=== PATIENT | male | born 1985 | race American Indian/Alaskan Native ===

== ENCOUNTER 2017-07-31 09:49 | Emergency (ER) | payer OTHER ==
[2017-07-31 10:31] VITALS: BP 123/86
--- NOTE | 2017-07-31 10:53 | Emergency Department Report ---
Chief Complaint: Headache Stated Complaint: MIGRANE Time Seen by Provider: 07/31/17 10:41 - HPI History of Present Illness: Patient is a 32-year-old male who states that for the past several days approximately 3-4 he has been having headaches that are left-sided only. Patient denies neck stiffness or fever. He has had nausea vomiting and mild light sensitivity. Patient states he thinks he has migraines. The patient has not been formally diagnosed with migraines. Patient denies trauma. Patient denies cough cold congestion or sinus issues. - Exam Vital Signs: Vital Signs 07/31/17 10:29 Temperature 98.2 F Pulse Rate 69 Blood Pressure 123/86 O2 Sat by Pulse 97 Oximetry Physical Exam: Quick physical exam no acute findings. MSE screening note: Focused history and physical exam performed. Due to findings the following was ordered: ED Disposition for MSE Condition: Stable
[2017-07-31] MEDS ORDERED: TORADOL IM ONE (10:54)
--- NOTE | 2017-07-31 12:10 | Cat Scan Report ---
CT scan of head without IV contrast: History: New onset headache. Findings: Ventricles are normal in size and midline in location. No evidence of acute ischemia, hemorrhage or mass. No extra-axial fluid collection. Normal brainstem and cerebellum. Distal tip near the region Normal sinuses and mastoid air cells. Impression: No acute intracranial abnormality.
--- NOTE | 2017-07-31 12:16 | Emergency Department Report ---
ED Headache HPI - General Chief Complaint: Headache Stated Complaint: MIGRANE Time Seen by Provider: 07/31/17 10:41 - History of Present Illness Initial Comments: Patient is a 32-year-old male who presents to the ED complaining of left-sided throbbing, aching headache times 3-4 days. he states headache is localized to his left-sided region only. Denies any recent head trauma or injury. He denies fevers/chills/nausea/vomiting or any other problems. Patient denies neck stiffness or fever. He rates the pain 8 out of 10 intensity. Allergies/Adverse Reactions: Allergies No Known Allergies Allergy (Unverified 07/31/17 10:28) Home Medications: Ambulatory Orders Aspirin/Acetaminophen/Caffeine [Excedrin Migraine Caplet] 1 each PO Q8H #30 tablet 07/31/17 Ibuprofen [Motrin] 800 mg PO Q8HR PRN #30 tablet 07/31/17 ED Review of Systems ROS: Stated complaint: MIGRANE Other details as noted in HPI Constitutional: denies: chills, fever Eyes: denies: eye pain, eye discharge, vision change ENT: denies: ear pain, throat pain Respiratory: denies: cough, shortness of breath, wheezing Cardiovascular: denies: chest pain, palpitations Endocrine: no symptoms reported Gastrointestinal: denies: abdominal pain, nausea, diarrhea Genitourinary: denies: urgency, dysuria Musculoskeletal: denies: back pain, joint swelling, arthralgia Skin: denies: rash, lesions Neurological: denies: headache, weakness, numbness, paresthesias, confusion Psychiatric: denies: anxiety, depression Hematological/Lymphatic: denies: easy bleeding, easy bruising ED Past Medical Hx - Past Medical History Previous Medical History?: No - Surgical History Past Surgical History?: No - Social History Smoking Status: Never Smoker - Medications Home Medications: Home Medications Medication Instructions Recorded Confirmed Last Taken Type Aspirin/Acetaminophen/Caffeine 1 each PO Q8H #30 tablet 07/31/17 Unknown Rx [Excedrin Migraine Caplet] Ibuprofen [Motrin] 800 mg PO Q8HR PRN #30 tablet 07/31/17 Unknown Rx ED Physical Exam - General Limitations: No Limitations General appearance: alert, in no apparent distress - Head Head exam: Present: atraumatic, normocephalic - Eye Eye exam: Present: normal appearance - ENT ENT exam: Present: mucous membranes moist - Neck Neck exam: Present: normal inspection - Respiratory Respiratory exam: Present: normal lung sounds bilaterally. Absent: respiratory distress - Cardiovascular Cardiovascular Exam: Present: regular rate, normal rhythm. Absent: systolic murmur, diastolic murmur, rubs, gallop - GI/Abdominal GI/Abdominal exam: Present: soft, normal bowel sounds - Rectal Rectal exam: Present: deferred - Extremities Exam Extremities exam: Present: normal inspection - Back Exam Back exam: Present: normal inspection - Neurological Exam Neurological exam: Present: alert, oriented X3, CN II-XII intact, normal gait - Expanded Neurological Exam Expanded Patient oriented to: Present: person, place, time Speech: Present: fluid speech Cranial nerves: EOM's Intact: Normal, Facial Sensation: Normal Cerebellar function: Finger to Nose: Normal Sensory exam: Upper Extremity Light Touch: Normal, Lower Extremity Light Touch: Normal Motor strength exam: RUE: 5, LUE: 5, RLE: 5, LLE: 5 DTR: knee (R): 2+, knee (L): 2+ Best Eye Response ([place]): (4) open spontaneously Best Motor Response ([place]): (6) obeys commands Best Verbal Response ([place]): (5) oriented [place] Total: 15 - Psychiatric Psychiatric exam: Present: normal affect, normal mood - Skin Skin exam: Present: warm, dry, intact, normal color. Absent: rash ED Course Vital Signs 07/31/17 10:29 Temperature 98.2 F Pulse Rate 69 Blood Pressure 123/86 O2 Sat by Pulse 97 Oximetry ED Medical Decision Making - Radiology Data Radiology results: report reviewed, image reviewed CT impression showed no acute bleed, trauma or any abnormalities. Normal CT scan of the head - Medical Decision Making 32-year-old male presents to ED with migraine ED course: Patient received pain medication and ED CT scan of the head shows normal findings I discussed findings with the patient. I discussed with the patient not take medication as prescribed. I discussed the patient is symptoms persist to follow up with the primary care physician or neurologist for further diagnosis. I discussed the patient's symptoms worsen on new symptoms develop to return to ED immediately Vital signs are normalized patient is in no acute respiratory distress. Critical care attestation.: If time is entered above; I have spent that time in minutes in the direct care of this critically ill patient, excluding procedure time. ED Disposition Clinical Impression: Migraine headache without aura Qualifiers: Status migrainosus presence: without status migrainosus Intractability: not intractable Qualified Code(s): G43.009 - Migraine without aura, not intractable , without status migrainosus Disposition: TO HOME OR SELFCARE Is pt being admited?: No Does the pt Need Aspirin: No Condition: Stable Instructions: Acute Headache (ED), Migraine Headache (ED) Additional Instructions: Make sure to follow up with the primary care physician as discussed. Take all your medications as you've been prescribed. If you have any worsening symptoms or develop new symptoms please return to ED immediately. Your CT scan was normal there was no abnormal findings. Prescriptions: Aspirin/Acetaminophen/Caffeine [Excedrin Migraine Caplet] 1 each PO Q8H #30 tablet Ibuprofen [Motrin] 800 mg PO Q8HR PRN #30 tablet PRN Reason: Pain Referrals: PRIMARY CAREMD [Primary Care Provider] - 3-5 Days ROSA M OHARA MD [Staff Physician] - 3-5 Days [facility] [Outside] - 3-5 Days [facility] [Outside] - 3-5 Days Forms: Accompanied Note, Work/School Release Form(ED) Time of Disposition: 12:18
== END 2017-07-31 12:43 | disposition home or self-care (01) ==
LOC: ED 09:49
DX: G43.909 Migraine, unspecified, not intractable, without status migrainosus (principal); Z79.82 Long term (current) use of aspirin
CPT/HCPCS: 70450; 96372; 99283; J1885

== ENCOUNTER 2017-08-07 15:23 | Emergency (ER) | payer SELFPAY ==
[2017-08-07 17:19] LABS: Basophils % (Auto) 0.5 % (0.0-1.8); Eosinophils % (Auto) 0.3 % (0.0-4.3); Hematocrit 46.6 % (35.5-45.6); Hemoglobin 15.2 gm/dl (11.8-15.2); Mean Corpuscular HGB Conc 33 % (32-34); Mean Corpuscular Hemoglobin 31 pg (28-32); Mean Corpuscular Volume 97 fl (84-94); Platelet Count 265 K/mm3 (140-440); Red Blood Count 4.82 M/mm3 (3.65-5.03); Red Cell Distribution Width 13.8 % (13.2-15.2); White Blood Count 5.9 K/mm3 (4.5-11.0)
[2017-08-07 17:39] LABS: Anion Gap 18 mmol/L; BUN/Creatinine Ratio 9; Blood Urea Nitrogen 8 mg/dL (9-20); Calcium 9.5 mg/dL (8.4-10.2); Carbon Dioxide 28 mmol/L (22-30); Chloride 99.3 mmol/L (98-107); Glucose 101 mg/dL (75-100); Potassium 4.6 mmol/L (3.6-5.0); Sodium 141 mmol/L (137-145)
[2017-08-07] MEDS ORDERED: FIORICET PO ONE (18:45)
[2017-08-07] MEDS ORDERED: DECADRON IV ONE (18:45)
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
[2017-08-07 19:56] VITALS: BP 125/79
== END 2017-08-07 19:56 | disposition home or self-care (01) ==
LOC: ED 15:23
DX: G44.209 Tension-type headache, unspecified, not intractable (principal); G43.909 Migraine, unspecified, not intractable, without status migrainosus
CPT/HCPCS: 36415; 80048; 85025; 96374; 99283; J1100

== ENCOUNTER 2018-10-05 16:07 | Emergency (ER) | payer SELFPAY ==
--- NOTE | 2018-10-05 16:28 | Emergency Department Report ---
Blank Doc - Documentation Documentation: This is a 33-year-old male that presents with cough. Patient stated that he g ets chest pain only during coughing and movement. Patient deneies any chest pain now. Denies any SOB. This initial assessment diagnostic orders/clinical plan/treatment(s) is/are subject to change based on patient's health status, clinical progression and re- assessment by fellow clinical providers in the ED. Further treatment and workup at subsequent clinical providers discretion. Patient/guardians urged not to elope from ED s their condition may be serious if not clinically assessed and managed. Initial orders include: 1-patient sent to [facility] for further evaluation and treatment. 2- EKG 3- CXR
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
[2018-10-05 23:14] VITALS: BP 132/91
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
== END 2018-10-05 23:25 | disposition home or self-care (01) ==
LOC: ED 16:07
DX: M94.0 Chondrocostal junction syndrome [Tietze] (principal); G43.909 Migraine, unspecified, not intractable, without status migrainosus
CPT/HCPCS: 71046; 93005; 93010